=== PATIENT | female | born 2000 | race American Indian/Alaskan Native ===

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

== ENCOUNTER 2018-01-18 19:07 | Outpatient (CLI) | payer MEDICAID ==
[2018-01-18] MEDS ORDERED: LACTATED RINGERS 500 ML IV ONE (20:03)
[2018-01-18 20:04] VITALS: BP 105/64
== END 2018-01-18 20:31 | disposition home or self-care (01) ==
LOC: TRG 19:07
PROVIDERS: ATTEND Obstetrics & Gynecology
DX: O47.02 False labor before 37 completed weeks of gestation, second trimester (principal); Z3A.24 24 weeks gestation of pregnancy
CPT/HCPCS: 59025

== ENCOUNTER 2018-01-18 20:45 | Emergency (ER) | payer MEDICAID ==
[2018-01-18] MEDS ORDERED: ASPIRIN PO ONE (21:10)
[2018-01-18 21:29] LABS: Basophils % (Auto) 0.2 % (0.0-1.8); Eosinophils # (Auto) 0.3 K/mm3 (0.0-0.4); Eosinophils % (Auto) 2.8 % (0.0-4.3); Hematocrit 36.3 % (30.3-42.9); Hemoglobin 12.7 gm/dl (10.1-14.3); Lymphocytes # (Auto) 1.8 K/mm3 (1.2-5.4); Mean Corpuscular HGB Conc 35 % (30-34); Mean Corpuscular Hemoglobin 32 pg (28-32); Mean Corpuscular Volume 92 fl (79-97); Monocytes # (Auto) 0.9 K/mm3 (0.0-0.8); Monocytes % (Auto) 7.4 % (0.0-7.3); Platelet Count 189 K/mm3 (140-440); Red Blood Count 3.95 M/mm3 (3.65-5.03)
[2018-01-18 21:49] LABS: Alanine Aminotransferase 13 units/L (7-56); Albumin 3.5 g/dL (3.9-5); BUN/Creatinine Ratio 14; Blood Urea Nitrogen 7 mg/dL (7-17); Calcium 8.5 mg/dL (8.4-10.2); Hemolysis Index 6; Lipase 19 units/L (13-60)
[2018-01-18 22:49] LABS: Bilirubin,Urine NEG (Negative); Blood,Urine NEG (Negative); Color,Urine Yellow (Yellow); Mucus,Urine FEW /HPF; Protein,Urine <15 mg/dL mg/dL (Negative); Urobilinogen,Urine < 2.0 mg/dL (<2.0)
--- NOTE | 2018-01-18 23:48 | Ultrasound Report ---
FINAL REPORT PROCEDURE: US OB > = 14 WEEKS FETUS TECHNIQUE: Real-time transabdominal sonography of the uterus, placenta, amniotic fluid, adnexa, and fetus was performed with image documentation. Measurements were obtained to determine age/size. M-mode Doppler was used to document heartbeat. CPT 58923 HISTORY: decreased baby kicking COMPARISON: No prior studies are available for comparison. FINDINGS: ADDITIONAL GESTATION: None. GENERAL: IUP: Single living intrauterine . Position: Cephalic Placental position: Anterior with grade 0 maturity, without previa. Amniotic fluid volume: Normal. MATERNAL: Uterus: Within normal limits. Cervical length: 3.0 cm. Internal Os: Closed. FETUS: Heart rate and rhythm: 141 beats per minute regular anatomic survey: No obvious abnormality is noted MEASUREMENTS: BPD: 6.2 centimeters corresponding to 25 weeks and 2 days HC: 23.1 centimeters corresponding to 25 weeks and 1 day AC: 20.1 centimeters corresponding to 24 weeks and 5 days FL: 4.6 centimeters corresponding Mean Gestational Age (composite criteria): 25 weeks and 1 day Ratio biometry: Normal. Estimated Weight: 757 grams grams. Estimated Due Date: 05/02/2018 IMPRESSION: Single intrauterine gestation at 25 weeks and 1 day. Estimated due date: 05/02/2018.
[2018-01-18] MEDS ORDERED: NACL 0.9% 1000 ML 1,000 ML IV ONE (23:56)
[2018-01-18] MEDS ORDERED: TYLENOL PO ONE (23:56)
[2018-01-18] MEDS ORDERED: ZOFRAN IV ONE (23:57)
--- NOTE | 2018-01-19 00:33 | Emergency Department Report ---
ED Chest Pain HPI - General Chief Complaint: Chest Pain Stated Complaint: CP Time Seen by Provider: 01/18/18 23:25 Source: patient Mode of arrival: Ambulatory Limitations: No Limitations - History of Present Illness Initial Comments: 17-year-old female with no significant past medical history presents to the hospital approximately 24 weeks with complaints of chest pain since last night. Chest pain is sternal and right-sided. Described as a constant pressure that fluctuates in intensity. Pain currently rated 8/10 in intensity. Patient complains of shortness of breath, increased pain with movement of torso and deep inspiration. She denies cough, fever, recent travel, calf tenderness, edema, or history of PE/DVT. Patient also feels like she has been more tired and has been feeling the baby kicking as much. She was seen by FRUIT INSPECTOR and had heart tones prior to being sent back to the ER for further evaluation of chest pain. This is patient's second and she has a history of one previous miscarriage and no living children. She also complains of intermittent nausea (without vomiting) throughout her causing her to have decreased by mouth intake. FRUIT INSPECTOR: [facility] FRUIT INSPECTOR Severity scale (0 -10): 5 - Related Data Previous Rx's Medication Instructions Recorded Last Taken Type Metoclopramide HCl [Reglan TAB] 5 mg PO Q8H PRN #15 tablet 09/05/17 Unknown Rx Ondansetron [Zofran Odt] 4 mg PO Q8HR PRN #20 tab.rapdis 01/19/18 Unknown Rx Allergies Allergy/AdvReac Type Severity Reaction Status Date / Time ranitidine [From Zantac] AdvReac Rash Verified 09/05/17 17:37 Heart Score - HEART Score History: Slightly suspicious EKG: Normal Age: < 45 Risk factors: No known risk factors Troponin: < normal limit HEART Score: 0 ED Review of Systems ROS: Stated complaint: CP Other details as noted in HPI Comment: All other systems reviewed and negative Other: Constitutional: No fevers chills Eyes: No eye pain visual changes ENT: No ear pain or throat pain Neck: Denies pain Respiratory: Denies cough wheezing Cardiovascular: Deniesalpitations, syncope GI: Denies abdominal pain, vomiting, diarrhea : Denies dysuria Musculoskeletal: Denies back pain, joint swelling Skin: Denies rash, lesions, erythema Neurologic: Denies headache, numbness, weakness Psychiatric: Denies suicidal ideation, hallucinations ED Past Medical Hx - Past Medical History Hx Hypertension: No Hx Diabetes: No Hx Deep Vein Thrombosis: No Hx Renal Disease: No Hx Sickle Cell Disease: No Hx Seizures: No Hx Asthma: No Hx HIV: No - Surgical History Past Surgical History?: No - Social History Smoking Status: Never Smoker Substance Use Type: None - Medications Home Medications: Home Medications Medication Instructions Recorded Confirmed Last Taken Type Metoclopramide HCl [Reglan TAB] 5 mg PO Q8H PRN #15 tablet 09/05/17 Unknown Rx Ondansetron [Zofran Odt] 4 mg PO Q8HR PRN #20 tab.rapdis 01/19/18 Unknown Rx ED Physical Exam - General Limitations: No Limitations - Other Other exam information: General: No limitations, patient is alert in no acute distress Head exam: Atraumatic, normocephalic Eyes exam: Normal appearance ENT: Moist mucous membrane, normal oropharynx Neck exam: Normal inspection, full range of motion, no meningismus nontender Respiratory exam: Clear to auscultation bilateral, no wheezes, rales, crackles Cardiovascular: Normal rate and rhythm, external chest wall tenderness and right -sided chest wall tenderness Abdomen: Soft, nondistended, uterus palpated, nontender, with normal bowel sounds, no rebound, or guarding Extremity: Full range of motion normal inspection no deformity, no calf tenderness or edema Back: Normal Inspection, full range of motion, no tenderness Neurologic: Alert, oriented x3, cranial nerves intact, no motor or sensory deficit Psychiatric: normal affect, normal mood Skin: Warm, dry, intact ED Course Vital Signs 01/18/18 01/18/18 01/19/18 20:49 23:00 00:40 Temperature 97.8 F Pulse Rate 76 83 Respiratory 18 18 18 Rate Blood Pressure 107/68 107/63 [Right] O2 Sat by Pulse 98 98 Oximetry JOSE DANIEL score - Jose Daniel Score Age > 65: (0) No Aspirin use within the Past 7 Days: (0) No 3 or more CAD Risk Factors: (0) No 2 or more Angina events in past 24 hrs: (0) No Known CAD with more than 50% Stenosis: (0) No Elevated Cardiac Markers: (0) No ST Deviation Greater than 0.5mm: (0) No JOSE DANIEL Score: 0 ED Medical Decision Making - Lab Data Result diagrams: 01/18/18 21:16 01/18/18 21:20 Lab Results 01/18/18 01/18/18 01/18/18 Range/Units 21:16 21:16 21:20 WBC 11.8 H (4.5-11.0) K/mm3 RBC 3.95 (3.65-5.03) M/mm3 Hgb 12.7 (10.1-14.3) gm/dl Hct 36.3 (30.3-42.9) % MCV 92 (79-97) fl MCH 32 (28-32) pg MCHC 35 H (30-34) % RDW 14.0 (13.2-15.2) % Plt Count 189 (140-440) K/mm3 Lymph % (Auto) 15.0 (13.4-35.0) % [place] % (Auto) 7.4 H (0.0-7.3) % Eos % (Auto) 2.8 (0.0-4.3) % Baso % (Auto) 0.2 (0.0-1.8) % Lymph # 1.8 (1.2-5.4) K/mm3 [place] # 0.9 H (0.0-0.8) K/mm3 Eos # 0.3 (0.0-0.4) K/mm3 Baso # 0.0 (0.0-0.1) K/mm3 Seg Neutrophils % 74.6 H (40.0-70.0) % Seg Neutrophils # 8.8 H (1.8-7.7) K/mm3 Sodium 135 L (137-145) mmol/L Potassium 4.1 (3.6-5.0) mmol/L Chloride 98.0 (98-107) mmol/L Carbon Dioxide 26 (22-30) mmol/L Anion Gap 15 mmol/L BUN 7 (7-17) mg/dL Creatinine 0.5 L (0.7-1.2) mg/dL Estimated GFR > 60 ml/min BUN/Creatinine Ratio 14 % Glucose 85 (65-100) mg/dL Calcium 8.5 (8.4-10.2) mg/dL Total Bilirubin 0.20 (0.1-1.2) mg/dL AST 17 (5-40) units/L ALT 13 (7-56) units/L Alkaline Phosphatase 58 (35-129) units/L Troponin T < 0.010 (0.00-0.029) ng/mL Total Protein 6.3 (6.3-8.2) g/dL Albumin 3.5 L (3.9-5) g/dL Albumin/Globulin Ratio 1.3 % Lipase 19 (13-60) units/L HCG, Quant 8021 H (0-4) mIU/mL Urine Color (Yellow) Urine Turbidity (Clear) Urine pH (5.0-7.0) Ur Specific [place] (1.003-1.030) Urine Protein (Negative) mg/dL Urine Glucose (UA) (Negative) mg/dL Urine Ketones (Negative) mg/dL Urine Blood (Negative) Urine Nitrite (Negative) Urine Bilirubin (Negative) Urine Urobilinogen (<2.0) mg/dL Ur Leukocyte Esterase (Negative) Urine WBC (Auto) (0.0-6.0) /HPF Urine RBC (Auto) (0.0-6.0) /HPF U Epithel Cells (Auto) (0-13.0) /HPF Urine Mucus /HPF / Range/Units 22:27 WBC (4.5-11.0) K/mm3 RBC (3.65-5.03) M/mm3 Hgb (10.1-14.3) gm/dl Hct (30.3-42.9) % MCV (79-97) fl MCH (28-32) pg MCHC (30-34) % RDW (13.2-15.2) % Plt Count (140-440) K/mm3 Lymph % (Auto) (13.4-35.0) % [place] % (Auto) (0.0-7.3) % Eos % (Auto) (0.0-4.3) % Baso % (Auto) (0.0-1.8) % Lymph # (1.2-5.4) K/mm3 [place] # (0.0-0.8) K/mm3 Eos # (0.0-0.4) K/mm3 Baso # (0.0-0.1) K/mm3 Seg Neutrophils % (40.0-70.0) % Seg Neutrophils # (1.8-7.7) K/mm3 Sodium (137-145) mmol/L Potassium (3.6-5.0) mmol/L Chloride (98-107) mmol/L Carbon Dioxide (22-30) mmol/L Anion Gap mmol/L BUN (7-17) mg/dL Creatinine (0.7-1.2) mg/dL Estimated GFR ml/min BUN/Creatinine Ratio % Glucose (65-100) mg/dL Calcium (8.4-10.2) mg/dL Total Bilirubin (0.1-1.2) mg/dL AST (5-40) units/L ALT (7-56) units/L Alkaline Phosphatase (35-129) units/L Troponin T (0.00-0.029) ng/mL Total Protein (6.3-8.2) g/dL Albumin (3.9-5) g/dL Albumin/Globulin Ratio % Lipase (13-60) units/L HCG, Quant (0-4) mIU/mL Urine Color Yellow (Yellow) Urine Turbidity Clear (Clear) Urine pH 8.0 H (5.0-7.0) Ur Specific [place] 1.017 (1.003-1.030) Urine Protein <15 mg/dl (Negative) mg/dL Urine Glucose (UA) Neg (Negative) mg/dL Urine Ketones Neg (Negative) mg/dL Urine Blood Neg (Negative) Urine Nitrite Neg (Negative) Urine Bilirubin Neg (Negative) Urine Urobilinogen < 2.0 (<2.0) mg/dL Ur Leukocyte Esterase Neg (Negative) Urine WBC (Auto) 1.0 (0.0-6.0) /HPF Urine RBC (Auto) 2.0 (0.0-6.0) /HPF U Epithel Cells (Auto) 3.0 (0-13.0) /HPF Urine Mucus Few /HPF - EKG Data -: EKG Interpreted by Oh EKG shows normal: sinus rhythm, axis (62), QRS complexes (84), ST-T waves (no stemi/t inv) Rate: normal (70) - EKG Data When compared to previous EKG there are: previous EKG unavailable - Radiology Data Radiology results: report reviewed read by radiologist us OB: SLIUP [address], [address] angio chest: No pulm embolism, slight bronchial wall thickening/mucoid impaction in the left lower lobe. May be mild hyronephrosis. shielding obscures visualization - Medical Decision Making Patient's chest pain appears to be reproducible. CT angiogram negative for pulmonary embolism but mild mucosal thickening. Attempted to contact production grip is Dr. Childs call regarding proper supportive management but no response greater than 1 hour after call. VPEP recommended by respiratory therapist to help with dislodgment of mucus plugging identified on CT. Patient does not complain of cough or fever symptomatically. Tylenol will be recommended for pain and outpatient follow-up with FRUIT INSPECTOR, primary care doctor, and production grip will be advised - Differential Diagnosis costochondritis, pneumonia, PE, MA, MSK pain Critical Care Time: No Critical care attestation.: If time is entered above; I have spent that time in minutes in the direct care of this critically ill patient, excluding procedure time. ED Disposition Clinical Impression: Chest wall pain, Dyspnea, 25 weeks gestation of , Mucus plugging of bronchi Disposition: TO HOME OR SELFCARE Is pt being admited?: No Does the pt Need Aspirin: No Condition: Stable Instructions: Costochondritis (ED), (ED) Additional Instructions: Take Tylenol as needed for pain. Use the VPEP device as instructed by respiratory therapist. Follow up with your FRUIT INSPECTOR doctor, primary care doctor, and production grip. Return is symptoms worsen as indicated by her discharge instructions. Prescriptions: Ondansetron [Zofran Odt] 4 mg PO Q8HR PRN #20 tab.rapdis PRN Reason: Nausea And Vomiting Referrals: RENATA CARRILLO JR, MD [Staff Physician] - 3-5 Days (Primary care doctor) CONNIE CHILDS MD [Staff Physician] - 3-5 Days (Lung doctor) JENNIE ODONNELL MD [Staff Physician] - 3-5 Days (FRUIT INSPECTOR Doctor ) Time of Disposition: 03:44
--- NOTE | 2018-01-19 01:24 | Cat Scan Report ---
FINAL REPORT PROCEDURE: CT ANGIO CHEST TECHNIQUE: Computerized axial tomographic angiography of the chest and pulmonary arteries was performed after the IV injection of iodinated nonionic contrast. The image data was postprocessed using maximum intensity projection (MIP) and 2-dimensional multiplanar reformatted (MPR) techniques. The examination is specifically tailored to the evaluation of the pulmonary arteries per clinical request. HISTORY: Shortness of breath. Chest pain. . COMPARISON: No prior studies are available for comparison. FINDINGS: Heart and pericardium: Normal. Thoracic aorta: Normal. Pulmonary vasculature: Normal. No pulmonary emboli. Tiny foci of air in the pulmonary artery likely related to injection. Lymph nodes: No enlarged thoracic lymph nodes. Lungs: Slight bronchial wall thickening/mucoid impaction in the left lower lobe Pleural space: No effusion, thickening, or pneumothorax. Musculoskeletal structures: No significant abnormality. Upper abdominal structures: There may be mild right hydronephrosis. Shielding causes artifact which obscures visualization of the upper abdomen. IMPRESSION: No CT evidence of pulmonary embolism.. Slight bronchial wall thickening/mucoid impaction in the left lower lobe. There may be mild right hydronephrosis. Shielding obscures visualization. Consider renal ultrasound if there is continued clinical concern.
[2018-01-19 04:05] VITALS: BP 104/65
--- NOTE | 2018-01-20 11:06 | Event Note ---
Date: 01/20/18 I have reviewed the CTA and do not appreciate any significant mucus plugging to explain chest pain. I also do not see any filling defects consistent with PE's I have attempted to contact Clara Moran at [phone] number on file but no one picked up.
== END 2018-01-19 04:05 | disposition home or self-care (01) ==
LOC: ED 20:45
DX: O26.892 Other specified pregnancy related conditions, second trimester (principal); R07.89 Other chest pain; R06.00 Dyspnea, unspecified; J98.09 Other diseases of bronchus, not elsewhere classified; Z3A.25 25 weeks gestation of pregnancy
CPT/HCPCS: 36415; 71275; 76805; 80053; 81001; 83690; 84484; 84702; 85025; 93005; 93010; 96361; 96374; 99285; J2405; J7030; Q9967

== ENCOUNTER 2018-02-25 10:03 | Outpatient (CLI) | payer MEDICAID ==
[2018-02-25 10:27] VITALS: BP 97/54
[2018-02-25] MEDS ORDERED: LACTATED RINGERS 500 ML IV ONE (10:35)
[2018-02-25 10:50] LABS: Bacteria,Urine 1+ /HPF (Negative); Bilirubin,Urine NEG (Negative); Blood,Urine NEG (Negative); Color,Urine Yellow (Yellow); Mucus,Urine FEW /HPF; Protein,Urine <15 mg/dL mg/dL (Negative)
[2018-02-25] MEDS ORDERED: LACTATED RINGERS 1,000 ML IV ONE (10:58)
== END 2018-02-25 12:29 | disposition home or self-care (01) ==
LOC: TRG 10:03 → LD 10:04 → TRG 12:29
PROVIDERS: ATTEND Obstetrics & Gynecology
DX: O47.03 False labor before 37 completed weeks of gestation, third trimester (principal); Z3A.30 30 weeks gestation of pregnancy
CPT/HCPCS: 59025; 81001; 96360; J7120

== ENCOUNTER 2018-02-25 12:45 | Emergency (ER) | payer MEDICAID ==
[2018-02-25 13:09] VITALS: BP 110/72
== END 2018-02-25 13:07 | disposition left against medical advice (07) ==
LOC: ED 12:45
DX: J11.1 Influenza due to unidentified influenza virus with other respiratory manifestations (principal); Z53.21 Procedure and treatment not carried out due to patient leaving prior to being seen by health care provider

== ENCOUNTER 2018-03-11 00:43 | Outpatient (CLI) | payer MEDICAID ==
[2018-03-11 01:06] VITALS: BP 119/58
[2018-03-11] MEDS ORDERED: LACTATED RINGERS 1,000 ML IV ONE (01:17)
[2018-03-11 02:51] LABS: Bacteria,Urine 1+ /HPF (Negative); Bilirubin,Urine NEG (Negative); Blood,Urine NEG (Negative); Color,Urine Yellow (Yellow); Mucus,Urine FEW /HPF; Protein,Urine <15 mg/dL mg/dL (Negative); Urobilinogen,Urine < 2.0 mg/dL (<2.0)
== END 2018-03-11 03:15 | disposition home or self-care (01) ==
LOC: TRG 00:43
PROVIDERS: ATTEND Obstetrics & Gynecology
DX: O47.03 False labor before 37 completed weeks of gestation, third trimester (principal); Z3A.32 32 weeks gestation of pregnancy
CPT/HCPCS: 59025; 81001; 96360; J7120

== ENCOUNTER 2018-04-26 11:43 | Inpatient (IN) | payer MEDICAID ==
[2018-04-26] MEDS ORDERED: SUBLIMAZE IV PRN (12:12)
[2018-04-26] MEDS: LACTATED RINGERS 1,000 ML IV SCH ×2 (12:39→15:45)
[2018-04-26] MEDS ORDERED: PITOCin/NS 20 UNIT/1000ML DRIP 20 UNITS/1,000 ML BAG IV SCH (13:00)
[2018-04-26] MEDS ORDERED: PITOCin/NS 30 UNIT/500ML 30 UNITS/500 ML BAG IV SCH (13:00)
[2018-04-26] MEDS ORDERED: POLYCILLIN/NS 2 GM/100 ML 2 GM/100 ML BAG IV SCH (13:00)
[2018-04-26 14:05] LABS: Hematocrit 33.2 % (30.3-42.9); Hemoglobin 11.1 gm/dl (10.1-14.3); Mean Corpuscular HGB Conc 34 % (30-34); Mean Corpuscular Hemoglobin 29 pg (28-32); Mean Corpuscular Volume 88 fl (79-97); Platelet Count 214 K/mm3 (140-440); Red Cell Distribution Width 14.3 % (13.2-15.2)
[2018-04-26] MEDS ORDERED: ePHEDrine SULFATE IV PRN (16:00)
[2018-04-26] MEDS ORDERED: fentaNYL-BUPIV 2 MCG/ML-0.125% 200 MCG/100 ML BAG EPIDURAL SCH (16:00)
[2018-04-26] MEDS ORDERED: NARCAN 2 MG/2 ML IV PRN (16:00)
--- NOTE | 2018-04-26 16:00 | Anesthesia Consultation ---
Anesthesia Consult and Med Hx Date of service: 04/26/18 - Airway Anesthetic Teeth Evaluation: Good ROM Head & Neck: Adequate Mental/Hyoid Distance: Adequate Mallampati Class: Class II Intubation Access Assessment: Probably Good - Pre-Operative Health Status ASA Pre-Surgery Classification: ASA2 Proposed Anesthetic Plan: Epidural, Spinal - Pulmonary Hx Asthma: No COPD: No Hx Pneumonia: No - Cardiovascular System Hx Hypertension: No - Central Nervous System Hx Seizures: No Hx Psychiatric Problems: No - Endocrine Hx Renal Disease: No Hx End Stage Renal Disease: No Hx Hypothyroidism: No Hx Hyperthyroidism: No - Hematic Hx Anemia: No Hx Sickle Cell Disease: No - Other Systems Hx Alcohol Use: No
[2018-04-26] MEDS ORDERED: AMPICILLIN/NS 1 GM/50 ML 1 GM/50 ML BAG IV SCH (17:00)
[2018-04-26] MEDS ORDERED: MINERAL OIL ONE (20:41)
--- NOTE | 2018-04-26 21:40 | History and Physical Report ---
History of Present Illness Date of examination: 04/26/18 Date of admission: 04/26/18 12:20 Chief complaint: I broke my water History of present illness: 18 yo at 38+ weeks admitted to labor and delivery for srom meconium stained. She is a patient of [facility] with hx of hsv2 and chlamydia that was treated. She is late to care intiating care at 20 weeks. 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 denies: no significant social history, smoking, alcohol abuse, prescription drug abuse - Obstetrical History Expected Date of Delivery: 05/05/18 Actual Gestation: 38 Week(s) 5 Day(s) : 2 Para: 0 Hx # Term Pregnancies: 0 Number of Pregnancies: 0 Spontaneous Abortions: 1 Induced : 0 Number of Living Children: 0 Medications and Allergies Allergies Allergy/AdvReac Type Severity Reaction Status Date / Time egg AdvReac Rash Verified 03/11/18 01:46 ranitidine [From Zantac] AdvReac Rash Verified 09/05/17 17:37 Home Medications Medication Instructions Recorded Confirmed Last Taken Type Formula Tablet 1 tab PO DAILY 04/26/18 04/26/18 Unknown History Active Meds: Active Medications Ephedrine Sulfate (Ephedrine Sulfate) 10 mg IV Q2M PRN PRN Reason: Hypotension Fentanyl (Sublimaze) 100 mcg IV Q2H PRN PRN Reason: Labor Pain Lactated Ringer's (Lactated Ringers) 1,000 mls @ 125 mls/hr IV DIRECT ANGIE Last Admin: 04/26/18 15:45 Dose: 125 mls/hr Oxytocin/Sodium Chloride (Pitocin/Ns 20 Unit/1000ml Drip) 20 units in 1,000 mls @ 0 mls/hr IV DIRECT ANGIE Oxytocin/Sodium Chloride (Pitocin/Ns 30 Unit/500ml) 30 units in 500 mls @ 4 mls /hr IV TITR ANGIE; Protocol Last Admin: 04/26/18 13:35 Dose: 4 ml/hr, 4 mls/hr Ampicillin Sodium (Polycillin/Ns 2 Gm/100 Ml) 2 gm in 100 mls @ 100 mls/hr IV ONCE ANGIE Last Admin: 04/26/18 12:39 Dose: 100 mls/hr Ampicillin Sodium (Ampicillin/Ns 1 Gm/50 Ml) 1 gm in 50 mls @ 100 mls/hr IV Q4H [facility] Last Admin: 04/26/18 16:24 Dose: 100 mls/hr Fentanyl/Bupivacaine/Sodium Chlor (Fentanyl-Bupiv 2 Mcg/Ml-0.125%) 200 mcg in 100 mls @ 12 mls/hr EPIDURAL TITR ANGIE; Protocol Last Admin: 04/26/18 16:46 Dose: 12 mls/hr Naloxone HCl (Narcan 2 Mg/2 Ml) 0.2 mg IV Q5M PRN PRN Reason: Respiratory sedation Review of Systems All systems: negative Genitourinary: leakage of fluid - Vital Signs Vital signs: Vital Signs Temp Resp 98.3 F 20 04/26/18 11:58 04/26/18 11:58 Temp Pulse Resp BP Pulse Ox 97.5 F L 113 H 18 146/66 80 L 04/26/18 19:22 04/26/18 21:25 04/26/18 19:22 04/26/18 21:25 04/26/18 20:32 - Physical Exam Breasts: Positive: normal Cardiovascular: Regular rate, Normal S1 Lungs: Positive: Clear to auscultation, Normal air movement Abdomen: Positive: normal appearance, soft, normal bowel sounds. Negative: distention, tenderness, guarding Genitourinary (Female): Positive: normal external genitalia, normal perenium Vulva: both: normal Vagina: Positive: normal moisture Uterus: Positive: normal size Anus/Rectum: Positive: normal perianal skin Extremities: Positive: normal Deep Tendon Reflex Grade: Normal +2 - Obstetrical FHR: category 1 Cervical Dilatation: 3 Uterine Contraction Pattern: Regular Uterine Tone Measurement Phase: Contraction Uterine Contraction Intensity: Mild Results Result Diagrams: 04/26/18 13:41 Abnormal lab results 04/26/18 Range/Units 13:41 WBC 11.5 H (4.5-11.0) K/mm3 All other labs normal. Assessment and Plan A/P IUP 38+5 weeks, vertex Grossly srom GBS+ abx initiated offer epidural expect vaginal delivery
--- NOTE | 2018-04-26 21:53 | Procedure Note ---
OB Delivery Note - Delivery Date of Delivery: 04/26/18 Surgeon: JENNIE ODONNELL Estimated blood loss: other (400cc) - Vaginal Delivery presentation: vertex Delivery position: OA Intrapartum events: meconium Delivery induction: none Delivery augmentation: pitocin Delivery monitor: external FHT, external uterine Route of delivery: Delivery placenta: spontaneous Delivery cord: 3 umbilical vessels Episiotomy: none Delivery laceration: 1st degree Delivery repair: vicryl Anesthesia: epidural Delivery comments: Patient was noted to be c/c/0 and commenced to pushing a viable male infant at 2055. the orophayrnx and pharynx suctioned with NICU team staff in the room. The cord was clamped and cut . The placenta delivered at 2103 intact with 3 vessels cord. The weight of the baby was 5 pounds 10 ounces. Apgars 8 and 9. EBL 400cc. Survery of the peineum revealed a first degree laceration repaired with a 2-0 vicryl. All sponge and needles correct x2. Patient tolerated procedure well and bonding with baby. - A at 1 minute: 8 at 5 minutes: 9 Infant Gender: Male
[2018-04-27] MEDS ORDERED: LANSINOH TP PRN (01:15)
[2018-04-27] MEDS ORDERED: TORADOL IV PRN (01:15)
[2018-04-27] MEDS ORDERED: TYLENOL PO PRN (01:15)
[2018-04-27] MEDS ORDERED: MILK OF MAGNESIA PO PRN (01:15)
[2018-04-27] MEDS ORDERED: PHENERGAN PR PRN (01:15)
[2018-04-27] MEDS ORDERED: PERCOCET 5/325 PO PRN (01:15)
[2018-04-27] MEDS ORDERED: BENADRYL PO PRN (01:15)
[2018-04-27] MEDS ORDERED: NORCO 5/325 PO PRN (01:15)
[2018-04-27] MEDS ORDERED: ZOFRAN IV PRN (01:15)
[2018-04-27] MEDS ORDERED: DULCOLAX PR PRN (01:15)
[2018-04-27] MEDS ORDERED: PHENERGAN PO PRN (01:15)
[2018-04-27] MEDS: TUCKS PAD TP PRN (01:55)
[2018-04-27] MEDS ORDERED: SODIUM CHLORIDE FLUSH SYRINGE 10 ML IV NR (02:00)
[2018-04-27] MEDS: MOTRIN PO SCH ×3 (06:06→23:51)
--- NOTE | 2018-04-27 08:35 | Progress Note ---
Assessment and Plan A: ~12 hrs s/p at term P: Routine care. Subjective - Subjective Date of service: 04/27/18 Principal diagnosis: ~ 12 hrs s/p Interval history: Pt without complaints. Doing well. Patient reports: appetite normal, voiding normally, pain well controlled, ambulating normally, no nauseated Arab: doing well Objective - Vital Signs Latest vital signs: Vital Signs Temp Pulse Resp BP BP BP Pulse Ox 04/27/18 04:57 98.0 F 75 20 116/85 98 04/26/18 23:52 98.5 F 72 20 115/76 99 04/26/18 22:59 97.4 F L 04/26/18 22:40 96 H 133/91 04/26/18 22:25 83 140/69 04/26/18 22:10 100 H 129/76 04/26/18 21:40 82 110/55 04/26/18 21:25 113 H 146/66 04/26/18 21:10 117 H 134/60 04/26/18 20:40 95 H 121/80 04/26/18 20:32 59 L 80 L 04/26/18 20:31 77 100 18 20:26 75 117/63 100 18 20:24 80 117/64 04/26/18 20:21 72 100 18 20:16 70 100 18 20:13 74 84 18 20:11 73 100 18 20:10 71 121/61 18 20:06 74 98 18 20:01 71 99 18 19:56 70 100 18 19:54 69 117/71 18 19:51 68 100 18 19:46 70 99 18 19:40 75 123/75 18 19:26 69 121/73 04/26/18 19:22 97.5 F L 64 18 118/62 18 19:11 73 120/60 18 19:10 64 118/62 18 18:55 70 110/66 18 18:40 70 111/68 18 18:26 67 120/72 06/19/18 18:10 70 115/69 0619/18 18:02 71 93 06/19/18 18:01 66 100 06/19/18 17:56 90 100 06/19/18 17:54 62 116/72 0619/18 17:51 68 99 06/19/18 17:41 74 122/75 0619/18 17:25 113 H 116/70 0619/18 17:10 67 120/65 0619/18 16:57 102 H 110/51 0619/18 16:39 66 105/67 06/19/18 16:37 63 103/63 0619/18 16:35 71 112/62 06/19/18 16:33 74 110/60 06/18 16:31 70 111/58 04/26/18 16:27 71 110/68 0619/18 16:25 76 113/70 04/26/18 16:23 74 113/70 19/18 16:21 65 122/76 04/26/18 16:19 58 L 119/78 18 16:17 68 111/67 04/26/18 16:15 58 L 110/62 04/26/18 16:13 87 107/58 04/26/18 16:11 82 107/60 04/26/18 15:53 73 74 L 18 15:48 96 H 99 04/26/18 15:43 82 99 06/19/18 15:09 62 87 06/18 15:05 79 100 06//18 15:01 83 91 04/26/18 15:00 90 98 0619/18 14:55 83 99 06/19/18 14:50 71 97 06/19/18 14:45 79 99 06/19/18 14:40 82 99 06/19/18 14:35 71 99 06/19/18 14:30 79 99 06/19/18 14:25 79 100 06/19/18 14:20 73 100 06/19/18 14:15 78 99 06/19/18 14:10 74 99 06/19/18 14:05 83 100 06/19/18 14:00 81 98 06/19/18 13:55 68 99 06/19/18 13:50 78 99 06/19/18 13:46 67 121/65 06//18 13:45 71 99 04/26/18 13:40 75 99 04/26/18 13:36 25 L 92 04/26/18 13:35 69 99 04/26/18 13:30 68 99 04/26/18 13:25 79 98 04/26/18 13:20 62 98 04/26/18 13:15 72 100 04/26/18 13:10 80 99 04/26/18 13:05 69 97 04/26/18 13:00 61 98 04/26/18 12:55 69 99 04/26/18 12:50 63 99 04/26/18 12:45 65 98 04/26/18 12:24 71 100 04/26/18 12:19 65 100 04/26/18 12:14 62 100 04/26/18 12:09 63 99 04/26/18 12:04 64 99 04/26/18 11:58 98.3 F 20 Intake and Output 04/26/18 04/27/18 04/27/18 22:59 06:59 14:59 Intake Total 387.5 Output Total 125 Balance 387.5 -125 Intake: IV 387.5 Lactated Ringers 1,000 ml 387.5 @ 125 mls/hr IV DIRECT ANGIE Rx#:[id number] Output: Urine 125 Void 125 Other: Total, Output Amount 125 # Voids Void 1 Estimated Blood Loss 400 - Exam Breasts: Present: deferred Cardiovascular: Present: Regular rate Lungs: Present: Clear to auscultation Abdomen: Present: soft Uterus: Present: fundal height at umbilicus Extremities: Present: normal - Labs Labs: Abnormal lab results 04/26/18 Range/Units 13:41 WBC 11.5 H (4.5-11.0) K/mm3
[2018-04-27] MEDS ORDERED: PRENATAL VITAMIN PO SCH (10:00)
[2018-04-27 14:12] LABS: Hematocrit 31.8 % (30.3-42.9); Hemoglobin 10.6 gm/dl (10.1-14.3)
[2018-04-27] MEDS: COLACE PO SCH (21:45)
[2018-04-28] MEDS: MOTRIN PO SCH ×2 (05:56→12:10)
[2018-04-28] MEDS ORDERED: BOOSTRIX IM ONE (06:00)
[2018-04-28] MEDS ORDERED: M-M-R II VACCINE SUB-Q ONE (06:00)
--- NOTE | 2018-04-28 08:52 | Progress Note ---
Assessment and Plan O: VSS AF A: Stable PP Day 2 Subjective - Subjective Date of service: 04/28/18 Principal diagnosis: ~ 12 hrs s/p Patient reports: appetite normal, voiding normally, pain well controlled, flatus , ambulating normally [place]: doing well Objective - Vital Signs Latest vital signs: Vital Signs Temp Pulse Resp BP BP Pulse Ox 04/28/18 05:56 18 04/27/18 23:52 98.4 F 72 20 107/67 97 04/27/18 23:51 18 04/27/18 16:15 98 F 79 20 115/78 04/27/18 13:00 98.2 F 77 20 112/73 04/27/18 09:00 98.2 F 65 20 100/58 Intake and Output 04/27/18 04/28/18 04/28/18 22:59 06:59 14:59 Intake Total 360 480 Output Total 600 Balance -240 480 Intake: Oral 360 480 Output: Urine 600 Void 600 Other: Total, Intake Amount 240 240 Total, Output Amount 600 # Voids Void 1 - Exam Breasts: Present: deferred Abdomen: Present: normal appearance, soft. Absent: distention Uterus: Present: normal, firm, fundal height below umbilicus. Absent: bogginess , tenderness Extremities: Present: normal
--- NOTE | 2018-04-28 08:54 | Discharge Summary ---
Providers - Providers Date of Admission: 04/26/18 12:20 Date of discharge: 04/28/18 Attending physician: JENNIE ODONNELL MD Primary care physician: SARAH PALAFOX Hospitalization Reason for admission: active labor, IUP at term Delivery: Laceration: none Other procedures: none complications: none Discharge diagnosis: IUP at term delivered baby: male Condition at discharge: Good Disposition: DC-01 TO HOME OR SELFCARE Plan - Discharge Medications Prescriptions: Ferrous Sulfate 325 mg PO BID #30 tablet. Ibuprofen [Motrin] 600 mg PO Q8H PRN #30 tablet PRN Reason: Pain oxyCODONE /ACETAMINOPHEN [Percocet 5/325] 1 tab PO Q6HR PRN #30 tablet PRN Reason: Pain - Provider Discharge Summary Activity: routine, no sex for 6 weeks, no heavy lifting 4 weeks, no strenuous exercise Diet: routine Instructions: routine Additional instructions: [] Smoking cessation referral if applicable(refer to patient education folder for contact #) [] Refer to [facility]'s [facility] Booklet Call your doctor immediately for: * Fever > 100.5 * Heavy vaginal bleeding ( >1 pad per hour) * Severe persistent headache * Shortness of breath * Reddened, hot, painful area to leg or breast * Drainage or odor from incision. * Keep incision clean and dry at all times and follow doctor's instructions regarding bathing/showering - Follow up plan Follow up: SARAH PALAFOX MD [Primary Care Provider] - 14 Days (RTO for circumcison)
[2018-04-28] MEDS: COLACE PO SCH (12:10)
[2018-04-28] MEDS: TUCKS PAD TP PRN (12:14)
[2018-04-28 14:42] VITALS: BP 118/77
== END 2018-04-28 14:30 | disposition home or self-care (01) | DRG 774 ==
LOC: TRG 11:43 → LD 12:20 → OB 23:14
PROVIDERS: ADMIT Obstetrics & Gynecology; ATTEND Obstetrics & Gynecology
PROC: 10E0XZZ Delivery of Products of Conception, External Approach (ICD-10-PCS; principal; 2018-04-26)
PROC: 0HQ9XZZ Repair Perineum Skin, External Approach (ICD-10-PCS; 2018-04-26)
PROC: 3E0R3BZ Introduction of Anesthetic Agent into Spinal Canal, Percutaneous Approach (ICD-10-PCS; 2018-04-26)
PROC: 00HU33Z Insertion of Infusion Device into Spinal Canal, Percutaneous Approach (ICD-10-PCS; 2018-04-26)
PROC: 3E0234Z Introduction of Serum, Toxoid and Vaccine into Muscle, Percutaneous Approach (ICD-10-PCS; 2018-04-28)
DX: O99.824 Streptococcus B carrier state complicating childbirth (principal); O98.32 Other infections with a predominantly sexual mode of transmission complicating childbirth; O77.0 Labor and delivery complicated by meconium in amniotic fluid; O70.0 First degree perineal laceration during delivery; Z3A.38 38 weeks gestation of pregnancy; Z37.0 Single live birth; Z88.8 Allergy status to other drugs, medicaments and biological substances; Z91.018 Allergy to other foods; Z23 Encounter for immunization; A60.00 Herpesviral infection of urogenital system, unspecified
CPT/HCPCS: 36415; 85014; 85018; 85027; 86592; 86850; 86900; 86901; J0290; J2590; J7120

== ENCOUNTER 2019-08-30 13:43 | Emergency (ER) | payer SELFPAY ==
--- NOTE | 2019-08-30 14:14 | Emergency Department Report ---
Blank Doc - Documentation Documentation: 19-year-old female that presents with abdominal and n/v. This initial assessment/diagnostic orders/clinical plan/treatment(s) is/are subject to change based on patient's health status, clinical progression and re- assessment by fellow clinical providers in the ED. Further treatment and workup at subsequent clinical providers discretion. Patient/guardians urged not to elope from the ED as their condition may be serious if not clinically assessed and managed. Initial orders include: 1- Patient sent to [facility] for further evaluation and treatment 2- labs 3- UA
[2019-08-30 14:53] LABS: Basophils % (Auto) 0.3 % (0.0-1.8); Eosinophils # (Auto) 0.1 K/mm3 (0.0-0.4); Hematocrit 39.3 % (30.3-42.9); Hemoglobin 13.3 gm/dl (10.1-14.3); Lymphocytes # (Auto) 1.4 K/mm3 (1.2-5.4); Lymphocytes % (Auto) 13.6 % (13.4-35.0); Mean Corpuscular HGB Conc 34 % (30-34); Mean Corpuscular Volume 92 fl (79-97); Monocytes # (Auto) 0.9 K/mm3 (0.0-0.8); Monocytes % (Auto) 8.8 % (0.0-7.3); Platelet Count 208 K/mm3 (140-440); Red Blood Count 4.26 M/mm3 (3.65-5.03); Red Cell Distribution Width 15.3 % (13.2-15.2)
[2019-08-30 15:33] LABS: Alanine Aminotransferase 10 units/L (7-56); Albumin 4.3 g/dL (3.9-5); BUN/Creatinine Ratio 10; Blood Urea Nitrogen 7 mg/dL (7-17); Calcium 8.8 mg/dL (8.4-10.2); Hemolysis Index 3
[2019-08-30] MEDS ORDERED: ZOFRAN ODT PO ONE (15:33)
--- NOTE | 2019-08-30 15:42 | Emergency Department Report ---
HPI - General Chief Complaint: Abdominal Pain Time Seen by Provider: 08/30/19 14:13 - HPI HPI: 19 YO COMES IN WITH 1 DAY HX N/V/D. PLAYING ON CELL PHONE ON EXAM. VSS. NAD. NON ILL NONTOXIC APPEARING. NO ONE ELSE IN HOME ILL. VSS TAKING PO ON ADMIT HAS NOT HAD THIS BEFORE. LMP 2 W AGO ED Past Medical Hx - Past Medical History Previous Medical History?: No Hx Hypertension: No Hx Congestive Heart Failure: No Hx Diabetes: No Hx Deep Vein Thrombosis: No Hx Renal Disease: No Hx Sickle Cell Disease: No Hx Seizures: No Hx Asthma: No Hx COPD: No Hx HIV: No - Surgical History Past Surgical History?: No - Family History Family history: no significant - Social History Smoking Status: Never Smoker Substance Use Type: None - Medications Home Medications: Home Medications Medication Instructions Recorded Confirmed Last Taken Type Ondansetron [Zofran Odt] 4 mg PO Q8HR PRN #10 tab.rapdis 08/30/19 Unknown Rx ED Review of Systems ROS: Stated complaint: ABD PAIN/CRAMPS/BLOOD IN VOMIT/STOOL Other details as noted in HPI Comment: All other systems reviewed and negative Physical Exam - Physical Exam Vital Signs: Vital Signs 08/30/19 14:13 Temperature 98.4 F Pulse Rate 69 Respiratory 16 Rate Blood Pressure 94/72 Physical Exam: ALERT AND ORIENTED SS2 LUNGS CTA ABD SNT NO CVA TENDERNESS AMBULATORY ED Course Vital Signs 08/30/19 14:13 Temperature 98.4 F Pulse Rate 69 Respiratory 16 Rate Blood Pressure 94/72 ED Medical Decision Making - Lab Data Result diagrams: 08/30/19 14:36 08/30/19 14:35 - Medical Decision Making Vital Signs 08/30/19 14:13 Temperature 98.4 F Pulse Rate 69 Respiratory 16 Rate Blood Pressure 94/72 Labs 08/30/19 08/30/19 08/30/19 14:31 14:35 14:36 WBC 10.3 RBC 4.26 Hgb 13.3 Hct 39.3 MCV 92 MCH 31 MCHC 34 RDW 15.3 H Plt Count 208 Lymph % (Auto) 13.6 [place] % (Auto) 8.8 H Eos % (Auto) 1.0 Baso % (Auto) 0.3 Lymph # 1.4 [place] # 0.9 H Eos # 0.1 Baso # 0.0 Seg Neutrophils % 76.3 H Seg Neutrophils # 7.9 H Sodium 141 Potassium 3.7 Chloride 103.7 Carbon Dioxide 22 Anion Gap 19 BUN 7 Creatinine 0.7 Estimated GFR > 60 BUN/Creatinine Ratio 10 Glucose 90 Calcium 8.8 Total Bilirubin 0.70 AST 20 ALT 10 Alkaline Phosphatase 45 Total Protein 7.3 Albumin 4.3 Albumin/Globulin Ratio 1.4 Lipase 11 L HCG, Qual Negative Urine Color Urine Turbidity Urine pH Ur Specific [place] Urine Protein Urine Glucose (UA) Urine Ketones Urine Blood Urine Nitrite Urine Bilirubin Urine Urobilinogen Ur Leukocyte Esterase Urine WBC (Auto) Urine RBC (Auto) U Epithel Cells (Auto) Hyaline Casts Urine Mucus 08/30/19 Unknown WBC RBC Hgb Hct MCV MCH MCHC RDW Plt Count Lymph % (Auto) [place] % (Auto) Eos % (Auto) Baso % (Auto) Lymph # [place] # Eos # Baso # Seg Neutrophils % Seg Neutrophils # Sodium Potassium Chloride Carbon Dioxide Anion Gap BUN Creatinine Estimated GFR BUN/Creatinine Ratio Glucose Calcium Total Bilirubin AST ALT Alkaline Phosphatase Total Protein Albumin Albumin/Globulin Ratio Lipase HCG, Qual Urine Color Yellow Urine Turbidity Clear Urine pH 6.0 Ur Specific [place] 1.028 Urine Protein 30 mg/dl Urine Glucose (UA) Neg Urine Ketones 20 Urine Blood Neg Urine Nitrite Neg Urine Bilirubin Neg Urine Urobilinogen 4.0 Ur Leukocyte Esterase Neg Urine WBC (Auto) 2.0 Urine RBC (Auto) 2.0 U Epithel Cells (Auto) 4.0 Hyaline Casts 1 Urine Mucus 2+ LABS NOTED PREG NEG URINE NOTED NO VOMITING IN ER ABD SNT NO CVA TENDERNESS NO DIARRHEA IN ER MEDICATED IN ER DC HOME WITH DC PLAN OF CARE AND FOLLOW UP. BAILEE EXPLAINED TO PT THAT SHE NEEDS TO MAKE SURE HER URINE IMPROVES - WITH PCP. Vital Signs 08/30/19 14:13 Temperature 98.4 F Pulse Rate 69 Respiratory 16 Rate Blood Pressure 94/72 - Differential Diagnosis RO PREG/RO UTI Critical care attestation.: If time is entered above; I have spent that time in minutes in the direct care of this critically ill patient, excluding procedure time. ED Disposition Clinical Impression: Gastroenteritis Disposition: DC-01 TO HOME OR SELFCARE Is pt being admited?: No Does the pt Need Aspirin: No Condition: Stable Additional Instructions: FOLLOW UP WITH PCP TO MAKE SURE THAT YOUR URINE CLEARS OF KETONES AND PROTEIN REFERRAL BELOW YOU SHOULD SEE HIM NEXT WEEK HYDRATE WELL WITH WATER MEDS ORDERED TODAY DIET AND ACTIVITY TOLERATED Prescriptions: Ondansetron [Zofran Odt] 4 mg PO Q8HR PRN #10 tab.rapdis PRN Reason: Vomiting Referrals: ERIC PINTO MD [Staff Physician] - 3-5 Days Time of Disposition: 17:48
[2019-08-30 17:20] LABS: Bilirubin,Urine NEG (Negative); Blood,Urine NEG (Negative); Color,Urine Yellow (Yellow); Hyaline Casts,Urine 1 /LPF; Mucus,Urine 2+ /HPF
[2019-08-30] MEDS ORDERED: NACL 0.9% 1000 ML 1,000 ML IV ONE (17:41)
[2019-08-30 19:18] VITALS: BP 102/63
== END 2019-08-30 19:53 | disposition home or self-care (01) ==
LOC: ED 13:43
DX: K52.9 Noninfective gastroenteritis and colitis, unspecified (principal); Z79.899 Other long term (current) drug therapy; Z91.012 Allergy to eggs; Z88.8 Allergy status to other drugs, medicaments and biological substances
CPT/HCPCS: 36415; 80053; 81001; 83690; 84703; 85025; 96360; 99283; J7030; Q0162

== ENCOUNTER 2019-08-31 12:10 | Emergency (ER) | payer OTHER ==
--- NOTE | 2019-08-31 12:32 | Emergency Department Report ---
Blank Doc - Documentation Documentation: 19 y/o female presents to ED c/o pelvic pain and vaginal bleeding with heavy p elvic pressure. Reports diarrhea and constipation. his initial assessment/diagnostic orders/clinical plan/treatment(s) is/are subject to change based on patient's health status, clinical progression and re- assessment by fellow clinical providers in the ED. Further treatment and workup at subsequent clinical providers discretion. Patient/guardians urged not to elope from the ED as their condition may be serious if not clinically assessed and managed. Initial orders include: Pelvic us
--- NOTE | 2019-08-31 16:06 | Ultrasound Report ---
ULTRASOUND PELVIS INDICATION: Severe pelvic pain with scant discharge. TECHNIQUE: Transabdominal and Transvaginal. Duplex Color Doppler used: Yes. COMPARISON: None available FINDINGS: Uterus: Present. Size: 9.1 x 5.1 x 4.4 cm. Endometrial complex: Normal measuring 0.9 cm. Mass lesions: None. Additional findings: None. Right Ovary: Size: 4.7 x 1.7 x 1.9 cm Blood flow: Normal. Cyst or mass: A dominant follicle measures up to 1.3 cm. No additional solid or cystic lesions. Left Ovary: Size: 3.6 x 1.4 x 2.3 cm Blood flow: Normal. Cyst or mass: None. Urinary Bladder: Normal. Free Fluid: Minimal free fluid may be physiologic. Additional Findings: None. IMPRESSION: 1. No acute sonographic abnormality of the pelvis. 2. Additional findings as above. Signer Name: Nixon Barksdale MD Signed: 08/31/2019 4:02 PM Workstation Name: [id number]
--- NOTE | 2019-08-31 17:07 | Emergency Department Report ---
ED General Adult HPI - General Chief complaint: Abdominal Pain Stated complaint: BAD STOMACH PAIN/V/BLOOD IN STOOL Time Seen by Provider: 08/31/19 12:29 Source: patient Mode of arrival: Wheelchair Limitations: No Limitations - History of Present Illness Initial comments: This is a 19-year-old female with no prior medical history who returns to the ED after being evaluated yesterday for abdominal pain complaining of worsening of abdominal pain. She states that vomiting is resolved but she still having some abdominal cramping with watery loose stools. Patient reports 2 days ago she had some unusual food in an unusual training for the mall. Patient states she experienced some blood in her stool. He denies fevers/chills/vaginal discharge , vaginal bleeding or dysuria. He states she is currently on her menstrual cycle small started today - Related Data Previous Rx's Medication Instructions Recorded Last Taken Type Ondansetron [Zofran Odt] 4 mg PO Q8HR PRN #10 tab.rapdis 08/30/19 Unknown Rx Dicyclomine [Bentyl] 10 mg PO TID #30 capsule 08/31/19 Unknown Rx Allergies Allergy/AdvReac Type Severity Reaction Status Date / Time egg AdvReac Rash Verified 08/31/19 12:12 ranitidine [From Zantac] AdvReac Rash Verified 08/31/19 12:12 ED Review of Systems ROS: Stated complaint: BAD STOMACH PAIN/V/BLOOD IN STOOL Other details as noted in HPI Comment: All other systems reviewed and negative ED Past Medical Hx - Past Medical History Hx Hypertension: No Hx Congestive Heart Failure: No Hx Diabetes: No Hx Deep Vein Thrombosis: No Hx Renal Disease: No Hx Sickle Cell Disease: No Hx Seizures: No Hx Asthma: No Hx COPD: No Hx HIV: No - Surgical History Past Surgical History?: No - Social History Smoking Status: Never Smoker Substance Use Type: None - Medications Home Medications: Home Medications Medication Instructions Recorded Confirmed Last Taken Type Ondansetron [Zofran Odt] 4 mg PO Q8HR PRN #10 tab.rapdis 08/30/19 Unknown Rx Dicyclomine [Bentyl] 10 mg PO TID #30 capsule 08/31/19 Unknown Rx ED Physical Exam - General Limitations: No Limitations General appearance: alert, in no apparent distress - Head Head exam: Present: atraumatic, normocephalic - Eye Eye exam: Present: normal appearance - ENT ENT exam: Present: mucous membranes moist - Neck Neck exam: Present: normal inspection - Respiratory Respiratory exam: Present: normal lung sounds bilaterally. Absent: respiratory distress - Cardiovascular Cardiovascular Exam: Present: regular rate, normal rhythm. Absent: systolic murmur, diastolic murmur, rubs, gallop - GI/Abdominal GI/Abdominal exam: Present: soft, normal bowel sounds. Absent: distended, tenderness, guarding, mass, bruit - Extremities Exam Extremities exam: Present: normal inspection, full ROM - Back Exam Back exam: Present: normal inspection, full ROM. Absent: CVA tenderness (R), CVA tenderness (L) - Neurological Exam Neurological exam: Present: alert, oriented X3 - Psychiatric Psychiatric exam: Present: normal affect, normal mood - Skin Skin exam: Present: warm, dry, intact, normal color. Absent: rash ED Course Vital Signs 08/31/19 08/31/19 08/31/19 12:31 17:15 17:32 Temperature 98.1 F 98.1 F Pulse Rate 80 78 Respiratory 16 18 18 Rate Blood Pressure 111/70 Blood Pressure 110/70 [Left] O2 Sat by Pulse 100 100 Oximetry ED Medical Decision Making - Radiology Data Radiology results: report reviewed, image reviewed FINDINGS: Uterus: Present. Size: 9.1 x 5.1 x 4.4 cm. Endometrial complex: Normal measuring 0.9 cm. Mass lesions: None. Additional findings: None. Right Ovary: Size: 4.7 x 1.7 x 1.9 cm Blood flow: Normal. Cyst or mass: A dominant follicle measures up to 1.3 cm. No additional solid or cystic lesions. Left Ovary: Size: 3.6 x 1.4 x 2.3 cm Blood flow: Normal. Cyst or mass: None. Urinary Bladder: Normal. Free Fluid: Minimal free fluid may be physiologic. Additional Findings: None. IMPRESSION: 1. No acute sonographic abnormality of the pelvis. 2. Additional findings as above. 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 Discussed the patient to follow-up with instructions as she has been given the day before. Discussed with the patient to take Zofran and follow-up of brought diet as discussed. Patient is in no acute distress. Vital signs are normalized. Past with the patient to follow-up with laboratory machinist Critical care attestation.: If time is entered above; I have spent that time in minutes in the direct care of this critically ill patient, excluding procedure time. ED Disposition Clinical Impression: Acute gastroenteritis Disposition: DC- TO HOME OR SELFCARE Is pt being admited?: No Does the pt Need Aspirin: No Condition: Stable Instructions: Abdominal Pain (ED) Additional Instructions: Make sure to follow up with the primary care physician as discussed. Take all your medications as you've been prescribed. If you have any worsening symptoms or develop new symptoms please return to ED immediately. Prescriptions: Dicyclomine [Bentyl] 10 mg PO TID #30 capsule Referrals: PRIMARY CAREMD [Primary Care Provider] - 3-5 Days [facility] [Provider Group] - 3-5 Days Forms: Accompanied Note, Work/School Release Form(ED) Time of Disposition: 17:08
[2019-08-31 17:16] VITALS: BP 110/70
[2019-08-31] MEDS ORDERED: DICYCLOMINE 20 MG/2 ML INJ IM ONE (17:22)
[2019-08-31] MEDS ORDERED: KETOROLAC 30 MG/1 ML INJ IM ONE (17:22)
== END 2019-08-31 17:34 | disposition home or self-care (01) ==
LOC: ED 12:10
DX: K52.9 Noninfective gastroenteritis and colitis, unspecified (principal); Z91.012 Allergy to eggs; Z88.6 Allergy status to analgesic agent
CPT/HCPCS: 76830; 76856; 96372; 99283; J0500; J1885

== ENCOUNTER 2020-01-21 21:56 | Emergency (ER) | payer OTHER ==
[2020-01-21 22:06] VITALS: BP 144/65
--- NOTE | 2020-01-21 22:20 | Event Note ---
ED Screening Note Date of service: 01/21/20 Time: 22:20 ED Screening Note: 19 y/o female comes in for abdominal pain. This initial assessment/diagnostic orders/clinical plan/treatment(s) is/are subject to change based on patients health status, clinical progression and re- assessment by fellow clinical providers in the ED. Further treatment and workup at subsequent clinical providers discretion. Patient/guardian urged not to elope from the ED as their condition may be serious if not clinically assessed and managed. Initial orders include:
[2020-01-21 23:42] LABS: Hematocrit 39.6 % (30.3-42.9); Hemoglobin 13.5 gm/dl (10.1-14.3); Mean Corpuscular HGB Conc 34 % (30-34); Mean Corpuscular Volume 91 fl (79-97); Platelet Count 285 K/mm3 (140-440); Red Blood Count 4.36 M/mm3 (3.65-5.03); Red Cell Distribution Width 15.3 % (13.2-15.2)
[2020-01-21 23:56] LABS: Alanine Aminotransferase 13 units/L (7-56); Albumin 4.7 g/dL (3.9-5); BUN/Creatinine Ratio 18; Blood Urea Nitrogen 11 mg/dL (7-17); Calcium 9.7 mg/dL (8.4-10.2); Hemolysis Index 43
[2020-01-22 02:13] LABS: Basophils % (Manual) 0 % (0.0-1.8); Eosinophils % (Manual) 0 % (0.0-4.3); Total Cells Counted 100
[2020-01-22 02:14] LABS: Platelet Estimate Consistent w Auto
== END 2020-01-22 01:20 | disposition left against medical advice (07) ==
LOC: ED 21:56
DX: R10.9 Unspecified abdominal pain (principal); Z53.21 Procedure and treatment not carried out due to patient leaving prior to being seen by health care provider
CPT/HCPCS: 36415; 80053; 83690; 84702; 85007; 85025

== ENCOUNTER 2021-09-09 15:41 | Emergency (ER) | payer OTHER ==
[2021-09-09 15:51] VITALS: BP 111/72
[2021-09-09] MEDS ORDERED: METOCLOPRAMIDE 10 MG TAB PO ONE (16:35)
[2021-09-09] MEDS ORDERED: ACETAMINOPHEN 325 MG TAB PO ONE (16:35)
[2021-09-09 16:59] LABS: Basophils % (Auto) 0.2 % (0.0-1.8); Eosinophils # (Auto) 0.1 K/mm3 (0.0-0.4); Eosinophils % (Auto) 1.4 % (0.0-4.3); Hematocrit 38.3 % (30.3-42.9); Hemoglobin 12.9 gm/dl (10.1-14.3); Lymphocytes # (Auto) 1.8 K/mm3 (1.2-5.4); Lymphocytes % (Auto) 17.1 % (13.4-35.0); Mean Corpuscular HGB Conc 34 % (30-34); Mean Corpuscular Volume 94 fl (79-97); Monocytes # (Auto) 0.9 K/mm3 (0.0-0.8); Monocytes % (Auto) 8.2 % (0.0-7.3); Platelet Count 215 K/mm3 (140-440); Red Blood Count 4.06 M/mm3 (3.65-5.03); Red Cell Distribution Width 14.6 % (13.2-15.2)
[2021-09-09 17:00] LABS: Bilirubin,Urine NEG (Negative); Blood,Urine NEG (Negative); Color,Urine Yellow (Yellow); Mucus,Urine 2+ /HPF; Urobilinogen,Urine < 2.0 mg/dL (<2.0)
--- NOTE | 2021-09-09 17:28 | Emergency Department Report ---
ED Abdominal Pain HPI - General Chief Complaint: Abdominal Pain Stated Complaint: 3WK ABDOM,BACK,SIDE PAIN Time Seen by Provider: 09/09/21 16:06 Source: patient Mode of arrival: Ambulatory Limitations: No Limitations - History of Present Illness Initial Comments: Patient is a 21-year-old female presents emergency room with complaints of abdominal pain that began last night. She has associated nausea. She reports that she is approximately 11 weeks based on her last menstrual cycle. She states her last menstrual cycle was 06/20/2021. She has not yet had her confirmed by ultrasound. She denies any vomiting, diarrhea, fever, vaginal bleeding, vaginal discharge, dysuria, urinary symptoms. No past medical history. Allergy to ranitidine. /P: 1/A: 2 Severity scale (0 -10): 10 - Related Data Previous Rx's Medication Instructions Recorded Last Taken Type Ondansetron [Zofran Odt] 4 mg PO Q8HR PRN #10 tab.rapdis 08/30/19 Unknown Rx Dicyclomine [Bentyl] 10 mg PO TID #30 capsule 08/31/19 Unknown Rx Allergies Allergy/AdvReac Type Severity Reaction Status Date / Time egg AdvReac Rash Verified 09/09/21 15:51 ranitidine [From Zantac] AdvReac Rash Verified 09/09/21 15:51 ED Review of Systems ROS: Stated complaint: 3WK ABDOM,BACK,SIDE PAIN Other details as noted in HPI Comment: All other systems reviewed and negative ED Past Medical Hx - Past Medical History Hx Hypertension: No Hx Congestive Heart Failure: No Hx Diabetes: No Hx Deep Vein Thrombosis: No Hx Renal Disease: No Hx Sickle Cell Disease: No Hx Seizures: No Hx Asthma: No Hx COPD: No Hx HIV: No - Social History Smoking Status: Never Smoker Substance Use Type: Marijuana - Medications Home Medications: Home Medications Medication Instructions Recorded Confirmed Last Taken Type Ondansetron [Zofran Odt] 4 mg PO Q8HR PRN #10 tab.rapdis 08/30/19 Unknown Rx Dicyclomine [Bentyl] 10 mg PO TID #30 capsule 08/31/19 Unknown Rx ED Physical Exam - General Limitations: No Limitations General appearance: alert, in no apparent distress - Head Head exam: Present: atraumatic, normocephalic - Eye Eye exam: Present: normal appearance - ENT ENT exam: Present: mucous membranes moist - Respiratory Respiratory exam: Present: normal lung sounds bilaterally. Absent: respiratory distress, wheezes, rales, rhonchi, stridor, chest wall tenderness, accessory muscle use, decreased breath sounds, prolonged expiratory - Cardiovascular Cardiovascular Exam: Present: regular rate, normal rhythm, normal heart sounds. Absent: systolic murmur, diastolic murmur, rubs, gallop - GI/Abdominal GI/Abdominal exam: Present: soft, tenderness (suprapubic), normal bowel sounds. Absent: distended, guarding, rebound, rigid - Neurological Exam Neurological exam: Present: alert, oriented X3 - Psychiatric Psychiatric exam: Present: normal affect, normal mood - Skin Skin exam: Present: warm, dry, intact ED Course Vital Signs 09/09/21 15:48 Temperature 98.6 F Pulse Rate 80 Respiratory 14 Rate Blood Pressure 111/72 [Left] O2 Sat by Pulse 100 Oximetry ED Medical Decision Making - Lab Data Result diagrams: 09/09/21 16:46 09/09/21 16:46 Labs 09/09/21 09/09/21 09/09/21 16:46 16:46 16:46 WBC 10.7 RBC 4.06 Hgb 12.9 Hct 38.3 MCV 94 MCH 32 MCHC 34 RDW 14.6 Plt Count 215 Lymph % (Auto) 17.1 [place] % (Auto) 8.2 H Eos % (Auto) 1.4 Baso % (Auto) 0.2 Lymph # (Auto) 1.8 [place] # (Auto) 0.9 H Eos # (Auto) 0.1 Baso # (Auto) 0.0 Seg Neutrophils % 73.1 H Seg Neutrophils # 7.8 H Sodium 136 L Potassium 5.0 Chloride 104.1 Carbon Dioxide 21 L Anion Gap 16 BUN 6 L Creatinine 0.5 L Estimated GFR > 60 BUN/Creatinine Ratio 12 Glucose 83 Calcium 9.2 Total Bilirubin 0.40 AST 14 ALT 8 Alkaline Phosphatase 40 Total Protein 6.8 Albumin 3.9 Albumin/Globulin Ratio 1.3 HCG, Quant 990023 H Urine Color Urine Turbidity Urine pH Ur Specific [place] Urine Protein Urine Glucose (UA) Urine Ketones Urine Blood Urine Nitrite Urine Bilirubin Urine Urobilinogen Ur Leukocyte Esterase Urine WBC (Auto) Urine RBC (Auto) U Epithel Cells (Auto) Urine Mucus 09/09/21 Unknown WBC RBC Hgb Hct MCV MCH MCHC RDW Plt Count Lymph % (Auto) [place] % (Auto) Eos % (Auto) Baso % (Auto) Lymph # (Auto) [place] # (Auto) Eos # (Auto) Baso # (Auto) Seg Neutrophils % Seg Neutrophils # Sodium Potassium Chloride Carbon Dioxide Anion Gap BUN Creatinine Estimated GFR BUN/Creatinine Ratio Glucose Calcium Total Bilirubin AST ALT Alkaline Phosphatase Total Protein Albumin Albumin/Globulin Ratio HCG, Quant Urine Color Yellow Urine Turbidity Clear Urine pH 8.0 H Ur Specific [place] 1.024 Urine Protein 30 mg/dl Urine Glucose (UA) 50 Urine Ketones Neg Urine Blood Neg Urine Nitrite Neg Urine Bilirubin Neg Urine Urobilinogen < 2.0 Ur Leukocyte Esterase Neg Urine WBC (Auto) 1.0 Urine RBC (Auto) 2.0 U Epithel Cells (Auto) 6.0 Urine Mucus 2+ - Radiology Data Radiology results: report reviewed Ordering Physician: ALISA SYED Date of Service: 09/09/21 Procedure(s): US OB <= 14 weeks fetus Accession Number(s): [id number] cc: ALISA SYED ULTRASOUND OBSTETRIC INDICATION / CLINICAL INFORMATION: abd pain, . Clinical Gestational Age (GA): 11.4 weeks.days TECHNIQUE: Transabdominal. COMPARISON: None available. FINDINGS: GESTATIONAL SAC: Well-defined oval shape and intrauterine in location. YOLK SAC: No significant abnormality. EMBRYO/FETUS: No significant abnormality. - [place]-Rump Length = 3.5 cm = 10.3 weeks.days - Heart Rate, beats per minute (if present) = 177 ADNEXA: No significant abnormality. FREE FLUID: None. ADDITIONAL FINDINGS: None. IMPRESSION: 1. Single, living intrauterine with estimated sonographic age of 10.3 weeks.days. Signer Name: Willem Reno MD Signed: 09/09/2021 5:30 PM Workstation Name: [id number] Transcribed By: CHERRIE Dictated By: Willem Reno MD Electronically Authenticated By: Willem Reno MD Signed Date/Time: 09/09/211729 DD/ 28 TD/TT: - Medical Decision Making Patient is a 21-year-old female presents emergency room with complaints of abdominal pain that began last night. She has associated nausea. She reports that she is approximately 11 weeks based on her last menstrual cycle. She states her last menstrual cycle was 06/20/2021. She has not yet had her confirmed by ultrasound. She denies any vomiting, diarrhea, fever, vaginal bleeding, vaginal discharge, dysuria, urinary symptoms. No past medical history. Allergy to ranitidine. /P: 1/A: 2. Vitals are normal. On exam patient has suprapubic abdominal tenderness, no guarding, no rebound, no rigidity, no masses, no peritoneal signs. Labs are stable. UA without evidence of UTI. OB ultrasound: 1. Single, living intrauterine with estimated sonographic age of 10.3 weeks.days. Patient given Reglan and Tylenol while in the emergency department with improvement of her symptoms and she was feeling much better and ready to go home. Discussed all results with patient and discussed the importance of [employer] LANGUAGE INTERPRETER follow-up. Advised patient may take Tylenol as needed for any pain. Increase your water intake. Practice pelvic rest. Follow-up with HOU[employer] S[employer] LANGUAGE INTERPRETER, if you do not have one there is one listed below. Take a vitamin [id number]. Return to emergency room for any new or worsening symptoms. Critical care attestation.: If time is entered above; I have spent that time in minutes in the direct care of this critically ill patient, excluding procedure time. ED Disposition Clinical Impression: Nausea Abdominal pain Qualifiers: Abdominal location: lower abdomen, unspecified Qualified Code(s): R10.30 - Lower abdominal pain, unspecified Qualifiers: Weeks of gestation: 10 weeks Qualified Code(s): Z3A.10 - 10 weeks gestation of Disposition: 01 HOME / SELF CARE / HOMELESS Is pt being admited?: No Does the pt Need Aspirin: No Condition: Stable Instructions: Abdominal Pain During , [id number], Abdominal Pain (ED) Additional Instructions: may take Tylenol as needed for any pain. Increase your water intake. Practice pelvic rest. Follow-up with HOU[employer] S[employer] LANGUAGE INTERPRETER, if you do not have one there is one listed below. Take a vitamin [id number]. Return to emergency room for any new or worsening symptoms. Referrals: PRIMARY CARE, [Primary Care Provider] - 3-5 Days MOISES BARRAGAN MD [Staff Physician] - 3-5 Days Time of Disposition: 18:53 Print Language: KYRGYZ
--- NOTE | 2021-09-09 17:34 | Ultrasound Report ---
ULTRASOUND OBSTETRIC INDICATION / CLINICAL INFORMATION: abd pain, . Clinical Gestational Age (GA): 11.4 weeks.days TECHNIQUE: Transabdominal. COMPARISON: None available. FINDINGS: GESTATIONAL SAC: Well-defined oval shape and intrauterine in location. YOLK SAC: No significant abnormality. EMBRYO/FETUS: No significant abnormality. - [place]-Rump Length = 3.5 cm = 10.3 weeks.days - Heart Rate, beats per minute (if present) = 177 ADNEXA: No significant abnormality. FREE FLUID: None. ADDITIONAL FINDINGS: None. IMPRESSION: 1. Single, living intrauterine with estimated sonographic age of 10.3 weeks.days. Signer Name: Willem Reno MD Signed: 09/09/2021 5:30 PM Workstation Name: [id number]
[2021-09-09 18:18] LABS: Alanine Aminotransferase 8 units/L (7-56); Albumin 3.9 g/dL (3.9-5); Blood Urea Nitrogen 6 mg/dL (7-17); Calcium 9.2 mg/dL (8.4-10.2); Hemolysis Index 7
[2021-09-09 18:21] LABS: BUN/Creatinine Ratio 12
== END 2021-09-09 19:08 | disposition home or self-care (01) ==
LOC: ED 15:41
DX: O26.891 Other specified pregnancy related conditions, first trimester (principal); R11.0 Nausea; R10.30 Lower abdominal pain, unspecified; Z3A.10 10 weeks gestation of pregnancy; Z91.012 Allergy to eggs; F12.90 Cannabis use, unspecified, uncomplicated
CPT/HCPCS: 36415; 76801; 80053; 81001; 84702; 85025; 99284

== ENCOUNTER 2021-11-24 19:13 | Outpatient (CLI) | payer OTHER ==
[2021-11-24] MEDS ORDERED: LACTATED RINGERS 1,000 ML ONE (19:22)
[2021-11-24 19:37] VITALS: BP 113/56
[2021-11-24] MEDS ORDERED: LACTATED RINGERS 1,000 ML IV ONE (19:39)
[2021-11-24] MEDS ORDERED: ONDANSETRON 4 MG/2 ML INJ IV PRN (19:40)
--- NOTE | 2021-11-24 23:26 | Ultrasound Report ---
. ULTRASOUND OBSTETRIC INDICATION / CLINICAL INFORMATION: cervical length, est weight, placenta location. Clinical Gestational Age (GA) in weeks, days: 22, 3 TECHNIQUE: Transabdominal. COMPARISON: Ultrasound dated 09/09/21 FINDINGS: Single intrauterine . Biparietal Diameter = 4.9 cm = 20, 6 weeks, days Head Circumference = 17.8 cm = 20, 2 weeks, days Abdominal Circumference = 15.7 cm = 20, 6 weeks, days Femur Length = 3.2 cm = 20, 0 weeks, days Average Ultrasound Age (AUA) = 20, 4 weeks, days Heart Rate: 170 beats per minute. Estimated Weight in grams (if calculated): 354 g Estimated Weight Growth Percentile (if calculated): Not calculated. Position: breech. Cervix: closed. Length in cm (if measured): 3.1 Placenta: posterior and free of the os. Grade 1. Amniotic Fluid Volume: normal Amniotic Fluid Index (KOMAL) in cm (if calculated): Not calculated.. Maternal Adnexa: Not evaluated. IMPRESSION: 1. Single, living intrauterine with estimated sonographic age of 20, 4 weeks, days. 2. No acute sonographic abnormality. Signer Name: Erin Alba MD Signed: 11/24/2021 11:21 PM Workstation Name: [id number]
[2021-11-25 00:01] LABS: Hematocrit 33.9 % (30.3-42.9); Hemoglobin 11.4 gm/dl (10.1-14.3); Mean Corpuscular HGB Conc 34 % (30-34); Mean Corpuscular Volume 95 fl (79-97); Platelet Count 163 K/mm3 (140-440); Red Blood Count 3.58 M/mm3 (3.65-5.03); Red Cell Distribution Width 14.1 % (13.2-15.2)
[2021-11-25 00:18] LABS: Alanine Aminotransferase 7 units/L (7-56); Albumin 3.3 g/dL (3.9-5); Blood Urea Nitrogen 5 mg/dL (7-17); Calcium 8.3 mg/dL (8.4-10.2); Hemolysis Index 11
[2021-11-25 00:22] LABS: BUN/Creatinine Ratio 10
[2021-11-25 02:12] LABS: Eosinophils % (Manual) 0 % (0.0-4.3); Total Cells Counted 100
[2021-11-25 02:13] LABS: Platelet Estimate Consistent w Auto; RBC Morphology Normal
== END 2021-11-25 03:08 | disposition home or self-care (01) ==
LOC: TRG 19:13 → APU 19:15 → TRG 11-25 03:08
PROVIDERS: ATTEND Obstetrics & Gynecology
DX: O26.852 Spotting complicating pregnancy, second trimester (principal); Z3A.22 22 weeks gestation of pregnancy
CPT/HCPCS: 36415; 76816; 80053; 82150; 83690; 85007; 85025